=== PATIENT | male | born 1985 | race Two or more races ===

== ENCOUNTER 2018-08-29 20:13 | Emergency (ER) | payer BC, OTHER ==
[~2018-08-29] VITALS: Ht 167.6 cm; Wt 77.1 kg
[2018-08-29 22:03] VITALS: BP 118/76
[2018-08-29] MEDS ORDERED: diphenhydrAMINE HCL 25 MG CAPSULE PO ONE (23:00)
[2018-08-29] MEDS ORDERED: predniSONE 20 MG TABLET PO ONE (23:00)
[2018-08-29] MEDS ORDERED: FAMOTIDINE 20 MG TABLET. PO ONE (23:00)
[2018-08-29] MEDS ORDERED: FAMO-63 PO (23:35)
[2018-08-29] MEDS ORDERED: METH4TAB2 PO (23:35)
--- NOTE | 2018-08-29 23:36 | PHYS DOC ---
Past Medical History Past Medical History: No Pertinent History Past Surgical History: No Surgical History Alcohol Use: None Drug Use: None Adult General Chief Complaint Chief Complaint: ALLERGIC REACTION [facility] HPI Patient is a 33 year old male who presents with an allergic reaction. The patient had applied icy hot and shortly thereafter developed a generalized rash. The patient did take Benadryl and Zyrtec immediately. It is not alleviating his rash. He denies swelling or itching to his throat. He denies shortness of breath. Review of Systems Review of Systems Constitutional: Denies fever or chills [] Eyes: Denies change in visual acuity, redness, or eye pain [] HENT: Denies nasal congestion or sore throat [] Respiratory: Denies cough or shortness of breath [] Cardiovascular: No additional information not addressed in HPI [] GI: Denies abdominal pain, nausea, vomiting, bloody stools or diarrhea [] : Denies dysuria or hematuria [] Musculoskeletal: Denies back pain or joint pain [] Integument: See history of present illness Neurologic: Denies headache, focal weakness or sensory changes [] Endocrine: Denies polyuria or polydipsia [] All other systems were reviewed and found to be within normal limits, except as documented in this note. Current Medications Current Medications Current Medications Medications (Trade) Dose Ordered Sig/Sandra Start Time Stop Time Status Last Admin Dose Admin Diphenhydramine HCl (Benadryl) 25 mg 1X ONCE 08/29/18 23:00 08/29/18 23:01 DC 08/29/18 23:00 25 MG Famotidine (Pepcid) 20 mg 1X ONCE 08/29/18 23:00 08/29/18 23:01 DC 08/29/18 22:59 20 MG Prednisone (Prednisone) 50 mg 1X ONCE 08/29/18 23:00 08/29/18 23:01 DC 08/29/18 23:00 50 MG Allergies Allergies Allergies Coded Allergies Type Severity Reaction Last Updated Verified No Known Drug Allergies 08/29/18 No Physical Exam Physical Exam Constitutional: Well developed, well nourished, no acute distress, non-toxic appearance. [] HENT: Normocephalic, atraumatic, bilateral external ears normal, oropharynx moist, no oral exudates, nose normal. [] Eyes: PERRLA, EOMI, conjunctiva normal, no discharge. [] Neck: Normal range of motion, no tenderness, supple, no stridor. [] Cardiovascular:Heart rate regular rhythm, no murmur [] Lungs & Thorax: Bilateral breath sounds clear to auscultation [] Abdomen: Bowel sounds normal, soft, no tenderness, no masses, no pulsatile masses. [] Skin: The patient has a generalized rash with itchy wheals consistent with hives Back: No tenderness, no CVA tenderness. [] Extremities: No tenderness, no cyanosis, no clubbing, ROM intact, no edema. [] Neurologic: Alert and oriented X 3, normal motor function, normal sensory function, no focal deficits noted. [] Psychologic: Affect normal, judgement normal, mood normal. [] Current Patient Data Vital Signs Vital Signs Date Time Temp Pulse Resp B/P (MAP) Pulse Ox O2 Delivery O2 Flow Rate FiO2 08/29/18 22:03 99.3 83 16 118/76 (90) 99 Room Air 99.3 EKG EKG [] Radiology/Procedures Radiology/Procedures [] Course & Med Decision Making Course & Med Decision Making Pertinent Labs and Imaging studies reviewed. (See chart for details) [] Staff Physician Addendum: I was working in the ER during the course of this patient's visit. I was available for consultation as needed, but I was not directly involved in the care of this patient. Dragon Disclaimer Dragon Disclaimer This electronic medical record was generated, in whole or in part, using a voice recognition dictation system. Departure Departure Impression: Primary Impression: Hives Disposition: HOME, SELF-CARE Condition: STABLE Referrals: NO PCP (PCP) Patient Instructions: Contact Dermatitis, Hives Additional Instructions: Take the medications as directed. Take Benadryl scheduled. Follow-up with your primary care provider for recheck in 3 days if not improving or return to the emergency department if worsening. Scripts Methylprednisolone (MEDROL) 4 Mg Tab.ds.pk 1 PKG PO UD, #1 PKG Prov: RETA COLLINS APRN 08/29/18 Famotidine (PEPCID) 20 Mg Tablet 20 MG PO HS, #30 TAB Prov: RETA COLLINS APRN 08/29/18 RETA COLLINS APRN Aug 29, 2018 23:36 GREGORY SOLARES MD Sep 08, 2018 06:52
== END 2018-08-29 23:43 | disposition home or self-care (01) ==
LOC: ER 20:13
DX: L50.9 Urticaria, unspecified (principal)
CPT/HCPCS: 99284; J7512; Q0163